=== PATIENT | female | born 1970 | race Hispanic/Latino ===

== ENCOUNTER 2021-06-26 07:10 | Emergency (ER) | payer SELFPAY ==
[2021-06-26] MEDS ORDERED: PHENYLEPHRINE 0.5% NOSE 15ML NAS ONE ×2 (07:38→07:39)
[2021-06-26] MEDS ORDERED: HYDROCODONE/APAP 10/325 TAB ONE (07:55)
[2021-06-26] MEDS ORDERED: ONDANSETRON 4 MG (ODT) TAB ONE (07:55)
--- NOTE | 2021-06-26 09:09 | EDPHYS ---
Physician Documentation [facility] Name: Alejandra Parisi Age: 50 yrs Sex: Female : 1970 Arrival Date: 06/26/2021 Time: 07:11 Bed 7 Private MD: ED Physician Kiel Hansen HPI: 06/26 07:30 This 50 yrs old Female presents to ER via Ambulatory with complaints of Nose jmm Bleed. 07:30 The patient presents with a nose bleed. Onset: The symptoms/episode began/occurred this [facility] morning. Modifying factors: The symptoms are alleviated by nothing. the symptoms are aggravated by nothing. This is a 50 year old female with a history of htn, that presents to the ED with complaints of nose bleed. Patient states she was seen in [place]. Advised to come to [facility] or [place] according to the patient. Patient denies weakness or dizziness. States her blood counts taken yesterday were wnl. . 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 - Social history:: Smoking status: Patient reports the use of cigarette tobacco products, smokes one pack cigarettes per day. ROS: 07:30 Constitutional: Negative for fever, chills, and weight loss. [facility] 07:30 ENT: Positive for nose bleed. 07:30 All other systems are negative. Exam: 07:30 Constitutional: This is a well developed, well nourished patient who is awake, alert, jmm and in no acute distress. Head/Face: atraumatic. Eyes: EOMI, no conjunctival erythema appreciated 07:30 Neck: Trachea midline, Supple Chest/axilla: Normal chest wall appearance and motion. Cardiovascular: Regular rate and rhythm. No edema appreciated Respiratory: Normal respirations, no respiratory distress appreciated Abdomen/GI: Non distended, soft Back: Normal ROM Skin: General appearance color normal MS/ Extremity: Moves all extremities, no obvious deformities appreciated, no edema noted to the lower extremities Neuro: Awake and alert, normal gait Psych: Behavior is normal, Mood is normal, Patient is cooperative and pleasant 07:30 ENT: Nose: bleeding, is seen from the left nare, and is minimal, clotted blood, in left nare, Posterior pharynx: is normal. Vital Signs: 07:26 BP 153 / 98; Pulse 78; Resp 24; Temp 98.2; Pulse Ox 98% ; Weight 99.79 kg; Height 5 ft. vg1 0 in. (152.40 cm); Pain 3/10; 08:30 BP 187 / 113; Pulse 80; Resp 18; ww 09:26 BP 160 / 88; Pulse 73; Resp 16; Pulse Ox 96% on R/A; ww 07:26 Body Mass Index 42.97 (99.79 kg, 152.40 cm) vg1 08:30 patient nausated and gagging due to rhino rocket placement ww Procedures: 07:40 Epistaxis treatment: A small amount of bleeding noted from Treated using rhino rocket, [facility] Bleeding stopped. MDM: 07:31 Patient medically screened. [facility] 09:06 Data reviewed: vital signs, nurses notes. Counseling: I had a detailed discussion with nazanin the patient and/or guardian regarding: the historical points, exam findings, and any diagnostic results supporting the discharge/admit diagnosis, the need for outpatient follow up, to return to the emergency department if symptoms worsen or persist or if there are any questions or concerns that arise at home. ED course: Bleeding resolved. Patient advised to follow up with ENT and otherwise given strict return precautions. Patient understood and agrees with the plan of care. . Administered Medications: 07:43 Drug: Gonzalez-Synephrine (phenylephrine) [place] 0.5 % 2 sprays {Note: administered by alexandr Platt.} Route: Intranasal; Site: left nare; 08:03 Follow up: Response: No adverse reaction vandana7 07:55 Drug: Ondansetron 4 mg Route: PO; jlLuis 08:03 Drug: [place] (HYDROcodone-acetaminophen) 10 mg-325 mg 1 tabs Route: PO; jl7 Disposition: 18:18 Co-signature as Attending Physician, Kiel Hansen MD I agree with the assessment and sp3 plan of care. Disposition Summary: 06/26/21 09:09 Discharge Ordered Location: Home [facility] Condition: Stable jmm Diagnosis - Epistaxis jmm Followup: m - With: Alina Solis MD - When: 2 - 3 days - Reason: Recheck today's complaints, Continuance of care, Re-evaluation by your physician Discharge Instructions: - Discharge Summary Sheet jmm - Nosebleed, Adult jmm Forms: - Medication Reconciliation Form [facility] - Thank You Letter [facility] - Antibiotic Education [facility] - Prescription Opioid Use [facility] Prescriptions: - Clindamycin HCl 300 mg Oral Capsule - take 1 capsule by ORAL route every 6 hours for 10 days; 40 capsule; Refills: 0, jmm Product Selection Permitted Signatures: Lc Fletcher PA PA m Pina Pizarro RN RN jl7 Miya Caballero RN RN vg1 Kiel Hansen MD MD sp3
--- NOTE | 2021-06-26 09:09 | ER ---
Nurse's Notes [facility] Name: Alejandra Parisi Age: 50 yrs Sex: Female : 1970 Arrival Date: 06/26/2021 Time: 07:11 Bed 7 Private MD: Diagnosis: Epistaxis Presentation: 06/26 07:26 Chief complaint: Patient states: nose bleed began last night around 0200; initially vg1 went to [facility] to try and resolve problem, states blood work was normal and they did a nose packing; states bleeding is still continuous and is 'feeling lightheaded'. Denies in facial injury. Coronavirus screen: Vaccine status: Patient reports being unvaccinated. Client denies travel out of the [place] in the last 14 days. Ebola Screen: Patient negative for fever greater than or equal to 101.5 degrees Fahrenheit, and additional compatible Ebola Virus Disease symptoms. Initial Sepsis Screen: Does the patient meet any 2 criteria? RR > 20 per min. Does the patient have a suspected source of infection? No. Patient's initial sepsis screen is negative. Risk Assessment: Do you want to hurt yourself or someone else? Patient reports no desire to harm self or others. Onset of symptoms was June 26, 2021. 07:26 Method Of Arrival: Ambulatory 1 07:26 Acuity: GELY 3 vg1 Triage Assessment: 07:28 General: Appears in no apparent distress. uncomfortable, Behavior is calm, cooperative. vg1 Pain: Complains of pain in nose Pain currently is 3 out of 10 on a pain scale. Pain began 4 hours ago. Neuro: Level of Consciousness is awake, alert, obeys commands, Oriented to person, place, time, situation, Reports 'feeling lightheaded'. Respiratory: Airway pt has a tampon inserted into each nostril Respiratory effort is even, unlabored, Respiratory pattern is tachypnea. 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 - Social history:: Smoking status: Patient reports the use of cigarette tobacco products, smokes one pack cigarettes per day. Screenin:00 Abuse screen: Denies threats or abuse. Denies injuries from another. Nutritional ww screening: No deficits noted. Tuberculosis screening: No symptoms or risk factors identified. Fall Risk None identified. Assessment: 09:00 General: Appears in no apparent distress. comfortable, Behavior is calm, cooperative, ww appropriate for age. Pain: Complains of pain in left nostril. Neuro: Level of Consciousness is awake, alert, obeys commands, Oriented to person, place, time, situation, Appropriate for age Speech is normal. Cardiovascular: Denies chest pain. Respiratory: Airway is patent Respiratory effort is even, unlabored, Respiratory pattern is regular, symmetrical. GI: No deficits noted. No signs and/or symptoms were reported involving the gastrointestinal system. : No deficits noted. No signs and/or symptoms were reported regarding the genitourinary system. EENT: Nares with bleeding noted on left. Derm: No signs and/or symptoms reported regarding the dermatologic system. Skin is intact, Skin is pink, warm \T\ dry. Vital Signs: 07:26 BP 153 / 98; Pulse 78; Resp 24; Temp 98.2; Pulse Ox 98% ; Weight 99.79 kg; Height 5 ft. vg1 0 in. (152.40 cm); Pain 3/10; 08:30 BP 187 / 113; Pulse 80; Resp 18; ww 09:26 BP 160 / 88; Pulse 73; Resp 16; Pulse Ox 96% on R/A; ww 07:26 Body Mass Index 42.97 (99.79 kg, 152.40 cm) vg1 08:30 patient nausated and gagging due to rhino rocket placement ww ED Course: 07:11 Patient arrived in ED. am2 07:20 Pina Pizarro, ESTEFANY is Primary Nurse. jl7 07:25 Lc Fletcher PA is PHCP. [facility] 07:25 Kiel Hansen MD is Attending Physician. [facility] 07:28 Triage completed. vg1 07:28 Arm band placed on. vg1 09:00 Patient has correct armband on for positive identification. ww 09:00 No provider procedures requiring assistance completed. Patient did not have IV access ww during this emergency room visit. 09:07 Dart, Alina, MD is Referral Physician. nazanin Administered Medications: 07:43 Drug: Gonzalez-Synephrine (phenylephrine) [place] 0.5 % 2 sprays {Note: administered by alexandr Platt.} Route: Intranasal; Site: left nare; 08:03 Follow up: Response: No adverse reaction jl7 07:55 Drug: Ondansetron 4 mg Route: PO; jl7 08:03 Drug: [place] (HYDROcodone-acetaminophen) 10 mg-325 mg 1 tabs Route: PO; jl7 Outcome: 09:09 Discharge ordered by . nazanin 09:27 Discharged to home ambulatory, with family. jerilyn 09:27 Condition: stable 09:27 Discharge instructions given to patient, Instructed on discharge instructions, follow up and referral plans. medication usage, safety practices, Demonstrated understanding of instructions, follow-up care, medications, Prescriptions given X 1. 09:28 Patient left the ED. ww Signatures: Lc Fletcher PA PA jmm Leal, Jahala, RN RN jl7 Jennyfer Tillman Victoria RN RN vg1 Bianca Valencia RN RN ww
[2021-06-26 09:32] VITALS: TEMP 98.2
[2021-06-26 09:34] VITALS: BP 160/88; O2SAT 96
== END 2021-06-26 09:28 | disposition home or self-care (01) ==
LOC: ER 07:10
DX: R04.0 Epistaxis (principal); F17.210 Nicotine dependence, cigarettes, uncomplicated; Z88.0 Allergy status to penicillin
CPT/HCPCS: 30901; 99283